=== PATIENT | female | born 1980 | race Caucasian/White ===

== ENCOUNTER 2017-05-11 20:23 | Emergency (ER) | payer OTHER ==
[2017-05-11 20:36] VITALS: BP 188/91; TEMP 98.9; O2SAT 99
== END 2017-05-11 20:47 | disposition left against medical advice (07) ==
LOC: ER 20:23
DX: Z53.21 Procedure and treatment not carried out due to patient leaving prior to being seen by health care provider (principal)

== ENCOUNTER 2017-05-12 22:06 | Emergency (ER) | payer OTHER ==
[2017-05-12 22:22] VITALS: TEMP 98
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
--- NOTE | 2017-05-12 23:07 | CT ---
EXAM: Head CLINICAL INDICATION: Headache. COMPARISON: None TECHNIQUE: Computed tomography examination of the head was performed without the use of intravenous contrast. Coronal and sagittal reformats were also obtained. This exam was performed according to our departmental dose-optimization program which includes use of Automated Exposure Control, adjustment of the mA and/or kV according to patient size and/or use of iterative reconstruction technique. FINDINGS: Normal CT appearance of the brain parenchyma, with preservation of the salcedo-white matter junction. There is no acute intracranial hemorrhage, sizeable acute ischemic infarction or an intracranial mass lesion on the basis of the unenhanced CT exam. There is no evidence of mass effect, midline shift or extra-axial collection. Ventricles are normal in size and the cisternal spaces are preserved. Visualized paranasal sinuses and mastoid air cells are well-aerated. Orbital structures appear intact. Calvarium appears intact IMPRESSION: No CT evidence for acute intracranial process. Electronically signed by: Emeka Sage MD 05/12/2017 11:06 PM CDT Workstation: [id number]
[2017-05-12 23:19] VITALS: BP 152/101
== END 2017-05-12 23:19 | disposition home or self-care (01) ==
LOC: ER 22:06
DX: S09.90XA Unspecified injury of head, initial encounter (principal); I11.0 Hypertensive heart disease with heart failure; I50.9 Heart failure, unspecified; F17.210 Nicotine dependence, cigarettes, uncomplicated; Z79.899 Other long term (current) drug therapy; Y08.09XA Assault by strike by other specified type of sport equipment, initial encounter; Y92.9 Unspecified place or not applicable

== ENCOUNTER 2017-08-15 21:09 | Emergency (ER) | payer OTHER ==
[2017-08-15] MEDS ORDERED: IBUPROFEN 200 MG TAB PO ONE (21:45)
[2017-08-15] MEDS ORDERED: ACETAMINOPHEN 325 MG TAB PO ONE (21:45)
--- NOTE | 2017-08-15 22:05 | RAD ---
Clinical History : edema with hx of chf , MAIN Exam : PA and lateral views of the chest 08/15/2017 9:46 PM [facility] Comparisons : Portable AP view of the chest June 08, 2015 Findings : The lungs are clear without focal consolidation or pleural effusion. The heart is normal in size. The mediastinal contours are normal in appearance. The thoracic spine is age appropriate. The shoulders are unremarkable. Limited evaluation of the upper abdomen demonstrates no gross abnormalities. Impression: No acute cardiopulmonary disease Electronically signed by: Shashank Ruiz MD 08/15/2017 10:04 PM [facility]
[2017-08-15] MEDS ORDERED: OSELTAMIVIR 75 MG CAP PO ONE (22:44)
--- NOTE | 2017-08-15 22:47 | ED.PDOC ---
History of Present Illness - General Chief Complaint: Cardiovascular Problem Stated Complaint: swollen feet Time Seen by Provider: 08/15/17 21:24 Source: patient Exam Limitations: no limitations - History of Present Illness Initial Comments: The patient is a 37-year-old female presenting to the emergency room secondary to concern for a congestive heart failure exacerbation. She does obviously have an upper respiratory tract infection and has some laryngitis. She has had a sore throat and runny nose for the last 24-48 hours. She is having some mild edema to her lower extremities and has had a history of uncontrolled hypertension with a CHF exacerbation the past. She is not short of breath. She does have +1 edema to bilateral lower extremities. She did recently discontinue all of her psychiatric medications and she does take large doses of opiate medications. No chest pain or palpitations. She is mildly febrile here tonight. Timing/Duration: 24 hours Severity: mild Improving Factors: nothing Worsening Factors: nothing Associated Symptoms: denies symptoms Allergies/Adverse Reactions: Allergies NO KNOWN ALLERGY Allergy (Verified 08/15/17 22:40) Home Medications: Ambulatory Orders ALPRAZolam [Xanax] 0.5 mg PO TID PRN 08/15/17 Diazepam [Valium] 10 mg PO PRN 08/15/17 Divalproex Sodium [Depakote Tab] 250 mg PO DAILY 08/15/17 Furosemide 40 mg PO DAILY 08/15/17 HYDROcodone 10MG/APAP 325MG [[place] 10/325] 1 ea PO DAILY 08/15/17 Lisinopril 20 mg PO DAILY 08/15/17 Methadone HCl [Methadone] 10 mg PO DAILY 08/15/17 Metoprolol Succinate [Toprol XL] 50 mg PO DAILY 08/15/17 Oseltamivir Capsule [Tamiflu] 75 mg PO BID 5 Days #10 capsule 08/15/17 Spironolactone 25 mg PO DAILY #7 tab 08/15/17 Suvorexant [Belsomra] 20 mg PO DAILY 08/15/17 Venlafaxine HCl [Effexor] 75 mg PO DAILY 08/15/17 Review of Systems - Review of Systems Constitutional: States: fever, malaise EENTM: States: nose congestion, throat pain Respiratory: States: no symptoms reported Cardiology: States: no symptoms reported Gastrointestinal/Abdominal: States: no symptoms reported Genitourinary: States: no symptoms reported Musculoskeletal: States: no symptoms reported Skin: States: no symptoms reported Neurological: States: anxiety Endocrine: States: no symptoms reported All other Systems: No Change from Baseline Past Medical History (General) - Patient Medical History Hx Seizures: No Hx Stroke: No Hx Asthma: No Hx of COPD: No Hx Cardiac Disorders: No Hx Congestive Heart Failure: Yes Hx Pacemaker: No Hx Hypertension: Yes Hx Diabetes: No Hx Renal Disease: No Hx MRSA: No Surgical History: other - Vaccination History Hx Tetanus, Diphtheria Vaccination: No Hx Influenza Vaccination: No Hx Pneumococcal Vaccination: No - Social History Hx Tobacco Use: Yes Hx Alcohol Use: No Hx Substance Use: No Hx Physical Abuse: No Hx Emotional Abuse: No - Female History Patient is a Female of Child Bearing Age (10 -59 yrs old): Yes Hx Last Menstrual Period: 05/27/15 Patient : No Family Medical History - Family History Mother Living Status: Still Living Father Living Status: Still Living Hx Family Congestive Heart Failure: Yes Hx Cardiac Disease: Yes Physical Exam - Physical Exam General Appearance: Alert, Comfortable, No apparent distress Eye Exam: bilateral normal Ears, Nose, Throat: hearing grossly normal, nasal congestion, pharyngeal erythema Neck: non-tender, full range of motion Respiratory: lungs clear, normal breath sounds, no respiratory distress, no accessory muscle use Cardiovascular/Chest: normal peripheral pulses, regular rate, rhythm, no edema Peripheral Pulses: radial,right: 2+, radial,left: 2+, dorsalis pedis,right: 2+, dorsalis pedis,left: 2+ Gastrointestinal/Abdominal: non tender, soft Rectal Exam: deferred Back Exam: normal inspection, no CVA tenderness Extremity: normal range of motion, non-tender, normal inspection, no pedal edema , normal capillary refill 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 The respiratory tract infection appears to be due to flu B. The patient will be placed on Tamiflu for 5 days. Motrin and Tylenol may be alternated to control fever and symptoms. Worsening of edema is of an uncertain source as her blood pressures are fairly well controlled. This may be from worsening iron deficiency, or a side effect of her medications. She does need to discuss supplementation with her primary care doctor on a long-term basis. The patient will be placed on one week of spironolactone 25 mg daily for the edema. She does have some bacteria in her urine. It does not appear to be causing much of a reaction. She does need to follow up for urine culture results with her primary care doctor in 5-7 days. No antibiotics otherwise are being written for it at this time. It is likely asymptomatic. blood pressures have normalized once the patient's anxiety has subsided. ER warnings were given for any worsening. if one has not been done in the past, consideration can be given to renal artery ultrasound for workup of her hypertension as an outpatient. 08/15/17 22:52 - Results/Orders Results/Orders: 08/15/17 21:45 EKG STAT normal sinus rhythm. Questionable small Q-wave in lead 3. No acute ST segment changes concerning for ischemia otherwise. chest x-ray shows no evidence of any pneumonia or CHF exacerbation. 08/15/17 21:46 Telemetry .CONTINUOUS normal sinus rhythm. The patient has tested positive for flu B and negative for strep. Laboratory Results - last 24 hr 08/15/17 08/15/17 08/15/17 21:20 21:20 21:46 WBC 6.1 RBC 4.61 Hgb 10.8 L Hct 33.8 L MCV 73.2 L MCH 23.4 L MCHC 32.0 L RDW 17.5 H Plt Count 251 MPV 8.1 Absolute Neuts (auto) 3.60 Absolute Lymphs (auto) 1.70 Absolute Monos (auto) 0.60 Absolute Eos (auto) 0.10 Absolute Basos (auto) 0.10 Neutrophils % 59.5 Lymphocytes % 28.5 Monocytes % 9.3 H Eosinophils % 1.2 Basophils % 1.5 Normal RBC Morphology 4+microcytosis Sodium 135 Potassium 3.7 Chloride 101 Carbon Dioxide 26 Anion Gap 11.7 L BUN 11 Creatinine 1.12 BUN/Creatinine Ratio 9.8 L Random Glucose 82 Serum Osmolality 268.6 L Calcium 8.7 Magnesium 1.9 Total Bilirubin 0.6 AST 42 ALT 27 Alkaline Phosphatase 79 Creatine Kinase 174 H CK-MB (CK-2) 1.9 Troponin I < 0.02 B-Natriuretic Peptide 396.0 H* Serum Total Protein 7.9 Albumin 3.7 Globulin 4.2 H Albumin/Globulin Ratio 0.9 L Urine Color Urine Appearance Urine pH Ur Specific Chloride Urine Protein Urine Glucose (UA) Urine Ketones Urine Blood Urine Nitrite Urine Bilirubin Urine Urobilinogen Ur Leukocyte Esterase Urine RBC Urine WBC Ur Epithelial Cells Urine Bacteria Urine Mucus Urine HCG, Qual Negative 08/15/17 21:51 WBC RBC Hgb Hct MCV MCH MCHC RDW Plt Count MPV Absolute Neuts (auto) Absolute Lymphs (auto) Absolute Monos (auto) Absolute Eos (auto) Absolute Basos (auto) Neutrophils % Lymphocytes % Monocytes % Eosinophils % Basophils % Normal RBC Morphology Sodium Potassium Chloride Carbon Dioxide Anion Gap BUN Creatinine BUN/Creatinine Ratio Random Glucose Serum Osmolality Calcium Magnesium Total Bilirubin AST ALT Alkaline Phosphatase Creatine Kinase CK-MB (CK-2) Troponin I B-Natriuretic Peptide Serum Total Protein Albumin Globulin Albumin/Globulin Ratio Urine Color Yellow Urine Appearance Sl cloudy Urine pH 6.0 Ur Specific Chloride 1.025 Urine Protein Trace Urine Glucose (UA) Negative Urine Ketones Trace Urine Blood Negative Urine Nitrite Negative Urine Bilirubin Negative Urine Urobilinogen 1.0 Ur Leukocyte Esterase Trace H Urine RBC 0 Urine WBC 1-3 Ur Epithelial Cells 10-20 Urine Bacteria 3+ H Urine Mucus Large Urine HCG, Qual Departure - Departure Clinical Impression: Edema, peripheral, Influenza B Disposition: Discharge to Home or Self Care Condition: Fair Departure Forms: ED Discharge - Pt. Copy, Patient Portal Self Enrollment Instructions: Influenza, DI for Peripheral Edema -- Bilateral Diet: low salt diet Activity: increase activity as tolerated Referrals: MONICA HADDAD [Primary Care Provider] - 1-2 Weeks Prescriptions: Oseltamivir Capsule [Tamiflu] 75 mg PO BID 5 Days #10 capsule Spironolactone 25 mg PO DAILY #7 tab Home Medications: Ambulatory Orders ALPRAZolam [Xanax] 0.5 mg PO TID PRN 08/15/17 Diazepam [Valium] 10 mg PO PRN 08/15/17 Divalproex Sodium [Depakote Tab] 250 mg PO DAILY 08/15/17 Furosemide 40 mg PO DAILY 08/15/17 HYDROcodone 10MG/APAP 325MG [[place] 10/325] 1 ea PO DAILY 08/15/17 Lisinopril 20 mg PO DAILY 08/15/17 Methadone HCl [Methadone] 10 mg PO DAILY 08/15/17 Metoprolol Succinate [Toprol XL] 50 mg PO DAILY 08/15/17 Oseltamivir Capsule [Tamiflu] 75 mg PO BID 5 Days #10 capsule 08/15/17 Spironolactone 25 mg PO DAILY #7 tab 08/15/17 Suvorexant [Belsomra] 20 mg PO DAILY 08/15/17 Venlafaxine HCl [Effexor] 75 mg PO DAILY 08/15/17 Additional Instructions: the patient is a 37-year-old female presenting to the emergency room secondary to symptoms of an upper respiratory tract infection as well as some edema. The respiratory tract infection appears to be due to flu B. The patient will be placed on Tamiflu for 5 days. Motrin and Tylenol may be alternated to control fever and symptoms. Worsening of edema is of an uncertain source as her blood pressures are fairly well controlled. This may be from worsening iron deficiency, or a side effect of her medications. She does need to discuss supplementation with her primary care doctor on a long-term basis. The patient will be placed on one week of spironolactone 25 mg daily for the edema. She does have some bacteria in her urine. It does not appear to be causing much of a reaction. She does need to follow up for urine culture results with her primary care doctor in 5-7 days. No antibiotics otherwise are being written for it at this time. It is likely asymptomatic. blood pressures have normalized once the patient's anxiety has subsided. ER warnings were given for any worsening. if one has not been done in the past, consideration can be given to renal artery ultrasound for workup of her hypertension as an outpatient. additionally the patient's TSH is mildly elevated. A full thyroid panel can be evaluated as an outpatient as well.
[2017-08-15 23:00] VITALS: BP 122/86; TEMP 101.5; O2SAT 97
== END 2017-08-15 23:14 | disposition home or self-care (01) ==
LOC: ER 21:09
DX: J10.1 Influenza due to other identified influenza virus with other respiratory manifestations (principal); I11.0 Hypertensive heart disease with heart failure; I50.9 Heart failure, unspecified; Z87.891 Personal history of nicotine dependence; Z79.891 Long term (current) use of opiate analgesic

== ENCOUNTER 2018-09-01 14:43 | Emergency (ER) | payer SELFPAY ==
[2018-09-01 15:01] VITALS: TEMP 98.8
[2018-09-01] MEDS ORDERED: IPRATROPIUM/ALBUTEROL 3 ML VIAL NEB ONE (15:01)
[2018-09-01] MEDS ORDERED: ALPRAZolam 0.25 MG TAB PO ONE (15:01)
[2018-09-01] MEDS ORDERED: IBUPROFEN 200 MG TAB PO ONE (15:01)
--- NOTE | 2018-09-01 15:33 | RAD ---
EXAM DESCRIPTION: Chest,2 Views CLINICAL HISTORY: 38 years Female, sob, fever COMPARISON: Radiographs of the chest dated 08/15/2017. TECHNIQUE: PA and lateral radiographs of the chest were obtained. FINDINGS: Trachea is midline.The cardiomediastinal silhouette is normal in size. The pulmonary vasculature is within normal limits.The lungs are clear with no acute consolidation.No evidence of pleural effusions.No evidence of pneumothorax. IMPRESSION: No acute cardiopulmonary process. Electronically signed by: Alida Hyde MD 09/01/2018 3:31 PM [facility]
[2018-09-01] MEDS ORDERED: AZITHROMYCIN IV 500 MG in SODIUM CHLORIDE 0.9% 250ML 250 ML IVPB ONE (18:19)
[2018-09-01] MEDS ORDERED: cefTRIAXone SODIUM 1 GM in SODIUM CHL 0.9% 50ML MIN-BAG+ 50 ML IVPB ONE (18:19)
[2018-09-01] MEDS ORDERED: levoFLOXacin 500 MG TAB PO ONE (18:20)
[2018-09-01] MEDS ORDERED: predniSONE 20 MG TAB PO ONE (18:20)
[2018-09-01] MEDS ORDERED: ALUMINUM & MAGNESIUM HYDROXIDE 30 ML UD PO ONE (18:45)
[2018-09-01] MEDS ORDERED: METHADONE HCL 10 MG TAB PO ONE (18:57)
[2018-09-01] MEDS ORDERED: cefTRIAXone SODIUM 1 GM VIAL ONE (19:06)
[2018-09-01] MEDS ORDERED: SODIUM CHL 0.9% 50ML MIN-BAG+ 50 ML IVPB ONE (19:06)
[2018-09-01] MEDS ORDERED: AZITHROMYCIN IV 500 MG VIAL IVPB ONE (19:07)
[2018-09-01] MEDS ORDERED: SODIUM CHLORIDE 0.9% 250ML 250 ML ONE (19:07)
[2018-09-01] MEDS ORDERED: POTASSIUM CHLORIDE ELIXIR 20 MEQ/15 ML UD PO ONE (20:51)
--- NOTE | 2018-09-01 21:59 | ED.PDOC ---
History of Present Illness - General Chief Complaint: Respiratory Problem Stated Complaint: chest congestion Time Seen by Provider: 09/01/18 14:59 Source: patient Exam Limitations: no limitations - History of Present Illness Initial Comments: the patient is a 38-year-old female brought in by EMS secondary to shortness of breath. The patient is definitely having a panic attack on arrival. For 3 days the patient has reported some shortness of breath. She is hoarse. She has had a productive cough. She has had a fever. She is anxious because she has had a history of congestive heart failure and is concerned that that has recurred. No fluid retention. No palpitations. No real chest pain. She does have a history of some esophagitis that has been kicking up recently. No syncope or near syncope. Timing/Duration: other - 3 days Severity: moderate Improving Factors: nothing Worsening Factors: nothing Associated Symptoms: cough, fever/chills, loss of appetite, malaise, shortness of breath Allergies/Adverse Reactions: Allergies NO KNOWN ALLERGY Allergy (Verified 08/15/17 22:40) Home Medications: Ambulatory Orders ALPRAZolam [Xanax] 0.5 mg PO TID PRN 08/15/17 Diazepam [Valium] 10 mg PO PRN 08/15/17 Divalproex Sodium [Depakote Tab] 250 mg PO DAILY 08/15/17 Furosemide 40 mg PO DAILY 08/15/17 HYDROcodone 10MG/APAP 325MG [[place] 10/325] 1 ea PO DAILY 08/15/17 Lisinopril 20 mg PO DAILY 08/15/17 Methadone HCl [Methadone] 10 mg PO DAILY 08/15/17 Metoprolol Succinate [Toprol XL] 50 mg PO DAILY 08/15/17 Oseltamivir Capsule [Tamiflu] 75 mg PO BID 5 Days #10 capsule 08/15/17 Spironolactone 25 mg PO DAILY #7 tab 08/15/17 Suvorexant [Belsomra] 20 mg PO DAILY 08/15/17 Venlafaxine HCl [Effexor] 75 mg PO DAILY 08/15/17 Azithromycin 500 mg PO DAILY #5 tab 09/01/18 Ferrous Gluconate 324 mg PO BID #60 tab 09/01/18 levoFLOXacin [Levaquin] 500 mg PO DAILY #5 tab 09/01/18 Review of Systems - Review of Systems Constitutional: States: fever EENTM: States: nose congestion, throat pain - mild Respiratory: States: cough, short of breath Cardiology: States: no symptoms reported Gastrointestinal/Abdominal: States: no symptoms reported Genitourinary: States: no symptoms reported Musculoskeletal: States: other - the patient has chronic pain issues Skin: States: no symptoms reported Neurological: States: anxiety Endocrine: States: no symptoms reported All other Systems: No Change from Baseline Past Medical History (General) - Patient Medical History Hx Seizures: No Hx Stroke: No Hx Asthma: No Hx of COPD: No Hx Cardiac Disorders: No Hx Congestive Heart Failure: Yes Hx Pacemaker: No Hx Hypertension: Yes Hx Diabetes: No Hx Renal Disease: No Hx MRSA: No - Vaccination History Hx Tetanus, Diphtheria Vaccination: No Hx Influenza Vaccination: No Hx Pneumococcal Vaccination: No - Social History Hx Tobacco Use: Yes Hx Alcohol Use: No Hx Substance Use: No Hx Physical Abuse: No Hx Emotional Abuse: No - Female History Patient is a Female of Child Bearing Age (10 -59 yrs old): Yes Hx Last Menstrual Period: 05/27/15 Patient : No - Triage Comment ED Triage Comment: lmp- one week ago Family Medical History - Family History Mother Living Status: Still Living Father Living Status: Still Living Hx Family Congestive Heart Failure: Yes Hx Cardiac Disease: Yes Physical Exam - Physical Exam General Appearance: Alert, Anxious Eye Exam: bilateral normal Ears, Nose, Throat: hearing grossly normal, nasal congestion, pharyngeal erythema Neck: full range of motion, supple Respiratory: lungs clear, normal breath sounds, no respiratory distress, no accessory muscle use, other - the patient is hoarse. Cardiovascular/Chest: normal peripheral pulses, regular rate, rhythm, no edema, tachycardia - initially tachycardic Peripheral Pulses: radial,right: 2+, radial,left: 2+, dorsalis pedis,right: 2+, dorsalis pedis,left: 2+ Gastrointestinal/Abdominal: non tender, soft Rectal Exam: deferred Back Exam: no CVA tenderness, no vertebral tenderness Extremity: normal range of motion, non-tender, normal inspection, no pedal edema Neurologic: radio recorder II-XII nml as tested, alert, oriented x 3, other - arkedly anxious Skin Exam: normal color Comments: Vital Signs - 24 hr 09/01/18 09/01/18 09/01/18 14:45 15:34 19:15 Temperature 98.8 F Pulse Rate 118 H Pulse Rate [ 126 H 88 pulse ox] Respiratory 20 20 20 Rate Blood Pressure 162/106 106/67 [Left Arm] O2 Sat by Pulse 98 98 94 L Oximetry 09/01/18 09/01/18 09/01/18 20:18 21:13 21:50 Temperature Pulse Rate Pulse Rate [ 90 82 85 pulse ox] Respiratory 20 18 Rate Blood Pressure 114/73 100/72 103/77 [Left Arm] O2 Sat by Pulse 93 L 91 L 92 L Oximetry Progress - Progress Progress: 09/01/18 22:01 the patient's a 38-year-old female brought into the emergency room secondary to several symptoms. The patient definitely has some anxiety contributing to some of her symptoms. She does however have a significant leukocytosis. This is most likely related to a bacterial bronchitis/laryngitis and possibly sinusitis. She is not hypoxic. She does not appear to be septic. She did receive doses of IV Rocephin and azithromycin and oral Levaquin. The patient is going to be continued on oral azithromycin and oral Levaquin for another 5 days. She does need to have blood work early next week to make sure that the white blood cell count is coming down. It was 17 today. Additionally the patient does have some mild hypokalemia and was given a dose of potassium here today. She does need to have this rechecked as well at that time. On top of that the patient does appear to have some iron deficiency. She will be written for some oral iron to take at a different time of day than her other medications. She needs to take this with some orange juice to help maximize absorption. She does need to have formal iron studies done, however a drop in her MCV dramatically over the past few years is highly indicative of iron deficiency. ER warnings are given for any significant worsening. - Results/Orders Results/Orders: chest x-ray is clear. No evidence of overt pneumonia or any evidence of congestive heart failure. EKG shows normal sinus rhythm at 99 bpm borderline QT interval. No definitive ST segment or T-wave changes diagnostic of ischemia. mild left atrial dilation. normal Perry. Normal QRS duration. 09/01/18 17:07 BLOOD CULTURE Stat flu was negative. Laboratory Results - last 24 hr 09/01/18 09/01/18 09/01/18 17:07 17:07 17:07 WBC 17.8 H RBC 5.21 Hgb 11.5 L Hct 35.9 L MCV 68.9 L MCH 22.0 L MCHC 32.1 L RDW 18.7 H Plt Count 380 MPV 7.6 Absolute Neuts (auto) 15.10 H Absolute Lymphs (auto) 1.60 Absolute Monos (auto) 0.70 Absolute Eos (auto) 0.10 Absolute Basos (auto) 0.20 H Neutrophils % 85.0 H Lymphocytes % 9.1 L Monocytes % 4.0 Eosinophils % 0.5 L Basophils % 1.4 Normal RBC Morphology Plts higinio adequate D-Dimer, Quantitative 0.31 Sodium 132 L Potassium 3.3 L Chloride 96 L Carbon Dioxide 24 Anion Gap 15.3 BUN 12 Creatinine 1.21 BUN/Creatinine Ratio 9.9 L Random Glucose 101 Serum Osmolality 264.4 L Calcium 9.2 Total Bilirubin 1.6 H AST 18 ALT 14 Alkaline Phosphatase 80 Creatine Kinase 74 CK-MB (CK-2) 1.5 CK-MB (CK-2) % 2.03 Troponin I 0.05 B-Natriuretic Peptide 119.0 H Serum Total Protein 9.1 H Albumin 4.1 Globulin 5.0 H Albumin/Globulin Ratio 0.8 L Group A Strep Rapid 09/01/18 18:45 WBC RBC Hgb Hct MCV MCH MCHC RDW Plt Count MPV Absolute Neuts (auto) Absolute Lymphs (auto) Absolute Monos (auto) Absolute Eos (auto) Absolute Basos (auto) Neutrophils % Lymphocytes % Monocytes % Eosinophils % Basophils % Normal RBC Morphology D-Dimer, Quantitative Sodium Potassium Chloride Carbon Dioxide Anion Gap BUN Creatinine BUN/Creatinine Ratio Random Glucose Serum Osmolality Calcium Total Bilirubin AST ALT Alkaline Phosphatase Creatine Kinase CK-MB (CK-2) CK-MB (CK-2) % Troponin I B-Natriuretic Peptide Serum Total Protein Albumin Globulin Albumin/Globulin Ratio Group A Strep Rapid Negative Departure - Departure Clinical Impression: Acute bacterial bronchitis, Hypokalemia Iron deficiency anemia Qualifiers: Iron deficiency anemia type: unspecified iron deficiency Qualified Code(s): D50.9 - Iron deficiency anemia, unspecified Disposition: Discharge to Home or Self Care Condition: Fair Departure Forms: ED Discharge - Pt. Copy, Patient Portal Self Enrollment Instructions: Acute Bronchitis, Adult (DC), Anemia Caused by Low Iron, Adult (D C), Hypokalemia (DC) Diet: bland diet Activity: increase activity as tolerated Referrals: MONICA HADDAD [Primary Care Provider] - 1-2 Weeks Prescriptions: Azithromycin 500 mg PO DAILY #5 tab Ferrous Gluconate 324 mg PO BID #60 tab levoFLOXacin [Levaquin] 500 mg PO DAILY #5 tab Home Medications: Ambulatory Orders ALPRAZolam [Xanax] 0.5 mg PO TID PRN 08/15/17 Diazepam [Valium] 10 mg PO PRN 08/15/17 Divalproex Sodium [Depakote Tab] 250 mg PO DAILY 08/15/17 Furosemide 40 mg PO DAILY 08/15/17 HYDROcodone 10MG/APAP 325MG [[place] 10325] 1 ea PO DAILY 08/15/17 Lisinopril 20 mg PO DAILY 08/15/17 Methadone HCl [Methadone] 10 mg PO DAILY 08/15/17 Metoprolol Succinate [Toprol XL] 50 mg PO DAILY 08/15/17 Oseltamivir Capsule [Tamiflu] 75 mg PO BID 5 Days #10 capsule 08/15/17 Spironolactone 25 mg PO DAILY #7 tab 08/15/17 Suvorexant [Belsomra] 20 mg PO DAILY 08/15/17 Venlafaxine HCl [Effexor] 75 mg PO DAILY 08/15/17 Azithromycin 500 mg PO DAILY #5 tab 09/01/18 Ferrous Gluconate 324 mg PO BID #60 tab 09/01/18 levoFLOXacin [Levaquin] 500 mg PO DAILY #5 tab 09/01/18 Additional Instructions: the patient's a 38-year-old female brought into the emergency room secondary to several symptoms. The patient definitely has some anxiety contributing to some of her symptoms. She does however have a significant leukocytosis. This is most likely related to a bacterial bronchitis/laryngitis and possibly sinusitis. She is not hypoxic. She does not appear to be septic. She did receive doses of IV Rocephin and azithromycin and oral Levaquin. The patient is going to be continued on oral azithromycin and oral Levaquin for another 5 days. She does need to have blood work early next week to make sure that the white blood cell count is coming down. It was 17 today. Additionally the patient does have some mild hypokalemia and was given a dose of potassium here today. She does need to have this rechecked as well at that time. On top of that the patient does appear to have some iron deficiency. She will be written for some oral iron to take at a different time of day than her other medications. She needs to take this with some orange juice to help maximize absorption. She does need to have formal iron studies done, however a drop in her MCV dramatically over the past few years is highly indicative of iron deficiency. ER warnings are given for any significant worsening.
[2018-09-01] MEDS ORDERED: FERROUS GLUCONATE 325 MG TAB ONE (22:15)
[2018-09-01 22:32] VITALS: BP 119/78; O2SAT 98
[2018-09-02] MEDS ORDERED: FERROUS GLUCONATE 325 MG TAB PO ONE (22:11)
== END 2018-09-01 22:31 | disposition home or self-care (01) ==
LOC: ER 14:43
DX: J20.9 Acute bronchitis, unspecified (principal); E87.6 Hypokalemia; D50.9 Iron deficiency anemia, unspecified; F41.0 Panic disorder [episodic paroxysmal anxiety]; I50.9 Heart failure, unspecified; I11.0 Hypertensive heart disease with heart failure; Z79.899 Other long term (current) drug therapy; Z87.891 Personal history of nicotine dependence
CPT/HCPCS: 71046; 80053; 82550; 82553; 83880; 84484; 85025; 85379; 87040; 87070; 87502; 87880; 93005; 94640; J0456; J0696; J7050; J7512; J7620

== ENCOUNTER 2018-09-17 19:36 | Emergency (ER) | payer SELFPAY ==
[2018-09-17 19:57] VITALS: TEMP 99.6
--- NOTE | 2018-09-17 20:41 | CT ---
EXAM DESCRIPTION: Cervical Spine CLINICAL HISTORY: 38 years Female neck popped with pain COMPARISON: 08/16/2012 TECHNIQUE: Multiplanar imaging through the cervical spine without contrast. This exam was performed according to our departmental dose-optimization program, which includes automated exposure control, adjustment of the mA and/or kV according to patient size and/or use of iterative reconstruction technique. FINDINGS: Cervical spine alignment is maintained. Vertebral body heights and disc spaces are preserved throughout. No cervical spine fracture. Prevertebral soft tissues are within normal limits. Visualized lung apices show no acute finding. Visualized thyroid gland is within normal limits. Minimal opacification involving the sphenoid sinuses and bilateral maxillary sinuses. A more focal round 4 mm opacification in the medial wall of the partially visualized right maxillary sinus, possibly representing a small nasal polyp. Incidentally noted, multifocal hypoattenuation involving the crown of some partially visualized bilateral maxillary teeth, particularly involving a right molar tooth. IMPRESSION: 1. No acute cervical spine finding. 2. Incidentally noted, dental disease involving partially seen maxillary teeth as above. Electronically signed by: Karie Rangel MD 09/17/2018 8:37 PM [facility]
--- NOTE | 2018-09-17 20:51 | ED.PDOC ---
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 Apparently the patient gets dizzy with her episodes of narcolepsy and she felt her head roll around and she felt a pop in her neck when it did. She did not hit her head on anything. She did not pass out. She has no point tenderness of her neck. She reported that for a few minutes after she had some tingling of her right arm. This is clinically most consistent with a stinger. No focal neurological deficits. She is alert and oriented though she is very anxious. Timing/Duration: momentarily Severity: moderate Improving Factors: nothing Worsening Factors: nothing Associated Symptoms: denies symptoms Allergies/Adverse Reactions: Allergies Morphine Allergy (Verified 09/17/18 19:58) anesthesia Allergy (Uncoded 09/17/18 19:58) Home Medications: Ambulatory Orders ALPRAZolam [Xanax] 0.5 mg PO TID PRN 08/15/17 Diazepam [Valium] 10 mg PO PRN 08/15/17 Divalproex Sodium [Depakote Tab] 250 mg PO DAILY 08/15/17 Furosemide 40 mg PO DAILY 08/15/17 HYDROcodone 10MG/APAP 325MG [[place] 10/325] 1 ea PO DAILY 08/15/17 Lisinopril 20 mg PO DAILY 08/15/17 Methadone HCl [Methadone] 10 mg PO DAILY 08/15/17 Metoprolol Succinate [Toprol XL] 50 mg PO DAILY 08/15/17 Oseltamivir Capsule [Tamiflu] 75 mg PO BID 5 Days #10 capsule 08/15/17 Spironolactone 25 mg PO DAILY #7 tab 08/15/17 Suvorexant [Belsomra] 20 mg PO DAILY 08/15/17 Venlafaxine HCl [Effexor] 75 mg PO DAILY 08/15/17 Azithromycin 500 mg PO DAILY #5 tab 09/01/18 Ferrous Gluconate 324 mg PO BID #60 tab 09/01/18 levoFLOXacin [Levaquin] 500 mg PO DAILY #5 tab 09/01/18 Review of Systems - Review of Systems Constitutional: States: no symptoms reported EENTM: States: no symptoms reported Respiratory: States: no symptoms reported Cardiology: States: no symptoms reported Gastrointestinal/Abdominal: States: no symptoms reported Genitourinary: States: no symptoms reported Musculoskeletal: States: neck pain Skin: States: no symptoms reported Neurological: States: see HPI Endocrine: States: no symptoms reported Hematologic/Lymphatic: States: no symptoms reported All other Systems: No Change from Baseline Past Medical History (General) - Patient Medical History Hx Seizures: No Hx Stroke: No Hx Dementia: No Hx Asthma: No Hx of COPD: No Hx Cardiac Disorders: No Hx Congestive Heart Failure: Yes Hx Pacemaker: No Hx Hypertension: Yes Hx Thyroid Disease: No Hx Diabetes: No Hx Gastroesophageal Reflux: No Hx Renal Disease: No Hx Cancer: No Hx of HIV: No Hx Hepatitis C: No Hx MRSA: No - Vaccination History Hx Tetanus, Diphtheria Vaccination: No Hx Influenza Vaccination: No Hx Pneumococcal Vaccination: No - Social History Hx Tobacco Use: Yes Hx Alcohol Use: No Hx Substance Use: No Hx Physical Abuse: No Hx Emotional Abuse: No - Female History Hx Last Menstrual Period: 05/27/15 Patient : No Family Medical History - Family History Mother Living Status: Still Living Father Living Status: Still Living Hx Family Congestive Heart Failure: Yes Hx Cardiac Disease: Yes Physical Exam - Physical Exam General Appearance: Alert, Anxious Eye Exam: bilateral normal Ears, Nose, Throat: hearing grossly normal, normal ENT inspection Neck: full range of motion, supple Respiratory: lungs clear, normal breath sounds, no respiratory distress, no accessory muscle use Cardiovascular/Chest: normal peripheral pulses, regular rate, rhythm, no edema Peripheral Pulses: radial,right: 2+, radial,left: 2+ Gastrointestinal/Abdominal: non tender, soft Rectal Exam: deferred Extremity: normal range of motion, no pedal edema, normal capillary refill Neurologic: diesel engine mechanic II-XII nml as tested, alert, normal mood/affect, oriented x 3, other - no objective sensory or strength changes in the upper extremities. She is ambulatory. Skin Exam: normal color Comments: Vital Signs - 24 hr 09/17/18 19:37 Temperature 99.6 F Pulse Rate [ 108 H monitor] Respiratory 20 Rate Blood Pressure 192/124 [Left Arm] O2 Sat by Pulse 99 Oximetry Progress - Progress Progress: 09/17/18 20:51 the patient is a 38-year-old female presenting to the emergency room secondary to some neck pain and right arm pain after an episode of narcolepsy. CT scan of the cervical spine shows no acute pathology. Clinically her symptoms of the right upper extremity are consistent with a stinger which can be consistent with her mechanism of injury. She needs to do gentle stretching exercises and apply topical heat to allow for muscle relaxation. If she is having any difficulty in a couple of days she can see a chiropractor for adjustment. [id number] anti-inflammatory such as Motrin or Aleve may also help somewhat. Departure - Departure Clinical Impression: Cervical myofascial strain Qualifiers: Encounter type: initial encounter Qualified Code(s): S16.1XXA - Strain of muscle, fascia and tendon at neck level, initial encounter Disposition: Discharge to Home or Self Care Condition: Fair Departure Forms: ED Discharge - Pt. Copy, Patient Portal Self Enrollment Instructions: DI for Cervical Muscle Strain, DI for Neck Sprain Diet: diabetic diet Activity: increase activity as tolerated Referrals: MONICA HADDAD [Primary Care Provider] - 1-2 Weeks Home Medications: Ambulatory Orders ALPRAZolam [Xanax] 0.5 mg PO TID PRN 08/15/17 Diazepam [Valium] 10 mg PO PRN 08/15/17 Divalproex Sodium [Depakote Tab] 250 mg PO DAILY 08/15/17 Furosemide 40 mg PO DAILY 08/15/17 HYDROcodone 10MG/APAP 325MG [[place] 10/325] 1 ea PO DAILY 08/15/17 Lisinopril 20 mg PO DAILY 08/15/17 Methadone HCl [Methadone] 10 mg PO DAILY 08/15/17 Metoprolol Succinate [Toprol XL] 50 mg PO DAILY 08/15/17 Oseltamivir Capsule [Tamiflu] 75 mg PO BID 5 Days #10 capsule 08/15/17 Spironolactone 25 mg PO DAILY #7 tab 08/15/17 Suvorexant [Belsomra] 20 mg PO DAILY 08/15/17 Venlafaxine HCl [Effexor] 75 mg PO DAILY 08/15/17 Azithromycin 500 mg PO DAILY #5 tab 09/01/18 Ferrous Gluconate 324 mg PO BID #60 tab 09/01/18 levoFLOXacin [Levaquin] 500 mg PO DAILY #5 tab 09/01/18 Additional Instructions: the patient is a 38-year-old female presenting to the emergency room secondary to some neck pain and right arm pain after an episode of narcolepsy. CT scan of the cervical spine shows no acute pathology. Clinically her symptoms of the right upper extremity are consistent with a stinger which can be consistent with her mechanism of injury. She needs to do gentle stretching exercises and apply topical heat to allow for muscle relaxation. If she is having any difficulty in a couple of days she can see a chiropractor for adjustment. [id number] anti-inflammatory such as Motrin or Aleve may also help somewhat.
[2018-09-17 21:09] VITALS: BP 154/132; O2SAT 98
== END 2018-09-17 21:10 | disposition home or self-care (01) ==
LOC: ER 19:36
DX: S16.1XXA Strain of muscle, fascia and tendon at neck level, initial encounter (principal); R42 Dizziness and giddiness; G47.419 Narcolepsy without cataplexy; I50.9 Heart failure, unspecified; I11.0 Hypertensive heart disease with heart failure; Z87.891 Personal history of nicotine dependence; Z79.899 Other long term (current) drug therapy; Z88.5 Allergy status to narcotic agent; Z88.8 Allergy status to other drugs, medicaments and biological substances; X50.9XXA Other and unspecified overexertion or strenuous movements or postures, initial encounter; Y92.9 Unspecified place or not applicable